=== PATIENT | female | born 1965 | race African-American/Black ===

== ENCOUNTER 2018-07-25 14:45 | Inpatient (IN) | payer OTHER ==
[2018-07-25 17:24] VITALS: BMI 19.7
--- NOTE | 2018-07-25 17:58 | HP ---
CIWA Score Nausea/Vomitin-Mild Nausea/No Vomiting Muscle Tremors: 3 Anxiety: 2 Agitation: 3 Paroxysmal Sweats: 1-Minimal Palms Moist Orientation: 0-Oriented Tacttile Disturbances: 0-None Auditory Disturbances: 0-None Visual Disturbances: 0-None Headache: 2-Mild CIWA-Ar Total Score: 12 - Admission Criteria OASAS Guidelines: Admission for Medically Managed Detox: Requires at least one of the followin. CIWA greater than 12 2. Seizures within the past 24 hours 3. Delirium tremens within the past 24 hours 4. Hallucinations within the past 24 hours 5. Acute intervention needed for co occurring medical disorder 6. Acute intervention needed for co occurring psychiatric disorder 7. Severe withdrawal that cannot be handled at a lower level of care (continued vomiting, continued diarrhea, abnormal vital signs) requiring intravenous medication and/or fluids 8. Patient presents the following: CIWA greater than 12 Admission Criteria Met: Admission criteria met Admission ROS S - [facility] Chief Complaint: here for alcohol and cocaine detox. On methadone 75mg qd - [facility] alcohol 15 24 oz of alcohol 4 loco alcohol, last drink this am, started at age, no h/o seizures, DT's cocaine: carck $50, last use last night Last detox treatment in [place] about 6 years ago. MH: schizophrenia, bipolar, depression depakote 500mg BID- last taken 1 week zyprexa- 25 mg trazodone for sleep 100mg Medical-PCP- [facility] asthma- albuterol, steroid po last week arrthymia- due to cocaine, on no meds pos PPD- s/p INH DUR- no controlled substances, methadone 75mg MAT at [facility] Utox- cocaine VERONICA- 0. Allergies/Adverse Reactions: Allergies Allergy/AdvReac Type Severity Reaction Status Date / Time Penicillins Allergy Severe Hives Verified 07/25/18 17:54 - Ebola screening Have you traveled outside of the country in the last 21 days: No Have you traveled to any of the following countries: [place] Have you had contact with anyone from an Ebola affected area: No Have you been sick,other than usual withdrawal symptoms: No - Review of Systems EENT: reports: Other (right side clogged ear- decreased hearing) Patient History - Patient Medical History Hx Asthma: Yes (asthma) Hx Cardiac Disorders: Yes (h/o arrhythmia due to cocaine use ) Hx Depression: Yes Hx Bipolar Disorder: Yes Hx Schizophrenia: Yes - Patient Surgical History Hx Appendectomy: Yes Other Surgical History: tonsillectomy - PPD History Documented Results: Positive w/o proof PPD to be Administered?: No - Smoking Cessation Smoking history: Current every day smoker Have you smoked in the past 12 months: Yes Aproximately how many cigarettes per day: 10 Hx Chewing Tobacco Use: No Initiated information on smoking cessation: Yes 'Breaking Loose' booklet given: 07/25/18 - Substance & Tx. History Hx Alcohol Use: Yes Hx Substance Use: Yes Substance Use Type: Alcohol, Cocaine Hx Substance Use Treatment: Yes - Substances Abused Alcohol Route: Oral Frequency: Daily Amount used: 12 24 OZ BEERS Age of first use: 17 Date of Last Use: 07/25/18 Crack Route: Smoking Frequency: Daily Amount used: $50 AND UP Age of first use: 17 Date of Last Use: 07/24/18 Family Disease History - Family Disease History Family History: Denies (denies med problems) Admission Physical Exam S - Vital Signs Vital Signs: Vital Signs - 24 hr 07/25/18 17:22 Temperature 97.3 F L Pulse Rate 55 L Respiratory 18 Rate Blood Pressure 138/78 - Physical General Appearance: Yes: Within Normal Limits HEENTM: Yes: Within Normal Limits Respiratory: Yes: Within Normal Limits Neck: Yes: Within Normal Limits Breast: Yes: Within Normal Limits Cardiology: Yes: Within Normal Limits Abdominal: Yes: Within Normal Limits Genitourinary: Yes: Within Normal Limits Back: Yes: Within Normal Limits Musculoskeletal: Yes: Within Normal Limits Extremities: Yes: Within Normal Limits, Normal Capillary Refill, Normal Inspection, Other (superficial skin wound of L mid leg about 3 inches above ankle) Neurological: Yes: Within Normal Limits, 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
[2018-07-25] MEDS ORDERED: ACETAMINOPHEN 325 MG TABLET (FP) PO PRN (18:06)
[2018-07-25] MEDS ORDERED: guaiFENesin/D-METHORPHAN HB 10 ML UNIT-DOSE CUPS PO PRN (18:06)
[2018-07-25] MEDS ORDERED: LOPERAMIDE HCL 2 MG CAPSULE PO PRN (18:06)
[2018-07-25] MEDS ORDERED: MAGNESIUM HYDROX 2400MG/30ML ORAL SUSPENSION 30 ML CUP PO PRN (18:06)
[2018-07-25] MEDS ORDERED: MAGNESIUM CITRATE 300 ML BOTTLE PO PRN (18:06)
[2018-07-25] MEDS ORDERED: hydrOXYzine PAMOATE 50 MG CAPSULE (FP) PO PRN (18:06)
[2018-07-25] MEDS ORDERED: IBUPROFEN 400 MG TABLET (FP) PO PRN (18:06)
[2018-07-25] MEDS ORDERED: MAG HYDROX/AL HYDROX/SIMETH 30 ML UNIT-DOSE CUP PO PRN (18:06)
[2018-07-25] MEDS ORDERED: MENTHOL/PHENOL 1 EACH UD MM PRN (18:06)
[2018-07-25] MEDS ORDERED: P-EPHED 60MG/TRIPROLIDI 2.5MG TABLET PO PRN (18:06)
[2018-07-25] MEDS ORDERED: chlordiazePOXIDE HCL 25 MG CAPSULE PO PRN (18:08)
[2018-07-25] MEDS ORDERED: ALBUTEROL SO4 8 GM HFA INHALER IH PRN (18:20)
[2018-07-25] MEDS ORDERED: chlordiazePOXIDE HCL 25 MG CAPSULE PO ONE (19:00)
[2018-07-25] MEDS ORDERED: MELATONIN 5 MG TABLETS PO PRN (22:00)
[2018-07-25] MEDS: BACITRACIN 0.9 GM PACKET TP SCH (22:30)
[2018-07-25] MEDS: DIVALPROEX NA *ER* EXTEND REL 500 MG TABLET.SA (FP) PO SCH (22:31)
[2018-07-25] MEDS: chlordiazePOXIDE HCL 25 MG CAPSULE PO SCH (22:31)
[2018-07-25] MEDS: traZODone HCL 100 MG TABLET (FP) PO SCH (22:31)
[2018-07-25] MEDS: THIAMINE HCL 100 MG TABLET (FP) PO SCH (22:31)
[2018-07-26] MEDS: chlordiazePOXIDE HCL 25 MG CAPSULE PO SCH ×3 (06:09→17:22)
[2018-07-26] MEDS ORDERED: METHADONE HCL 10 MG TABLET PO ONE (09:18)
[2018-07-26] MEDS ORDERED: METHADONE HCL 10 MG TABLET PO SCH (09:30)
[2018-07-26] MEDS ORDERED: METHADONE 40 MG, METHADONE 30 MG, METHADONE 5 MG PO ONE (09:30)
[2018-07-26] MEDS ORDERED: METHADONE HCL 40 MG DISPERSABLE TABLET ONE (09:57)
[2018-07-26] MEDS ORDERED: METHADONE HCL 5 MG TABLET ONE (09:57)
[2018-07-26] MEDS ORDERED: METHADONE HCL 10 MG TABLET ONE (09:58)
[2018-07-26] MEDS ORDERED: METHADONE HCL 5 MG TABLET (FOR DETOX USE ONLY) PO SCH (10:00)
[2018-07-26 10:23] LABS: HEMATOCRIT 39.6 % (32.4-45.2); HEMOGLOBIN 12.3 GM/dL (10.7-15.3); MCH 28.3 pg (25.7-33.7); MCHC 31.2 g/dl (32.0-36.0); MEAN CELL VOLUME 90.8 fl (80-96); MEAN PLT VOLUME 11.9 fl (7.5-11.1); PLATELET COUNT 161 K/MM3 (134-434); RBC 4.36 M/mm3 (3.60-5.2); RDW 14.4 % (11.6-15.6); WHITE BLOOD COUNT 3.9 K/mm3 (4.0-10.0)
[2018-07-26 10:33] LABS: ALBUMIN 2.8 g/dl (3.4-5.0); ALK PHOS 92 U/L (45-117); ANION GAP 10 MMOL/L (8-16); BILIRUBIN,TOTAL 0.1 mg/dL (0.2-1); BLOOD UREA NITROGEN 16 mg/dL (7-18); CALCIUM 8.6 mg/dL (8.5-10.1); CHLORIDE 107 mmol/L (98-107); CO2 23 mmol/L (21-32); CREATININE 0.9 mg/dL (0.55-1.3); GLUCOSE,RANDOM 131 mg/dL (74-106); POTASSIUM 3.3 mmol/L (3.5-5.1); SGOT/AST 17 U/L (15-37); SGPT/ALT 16 U/L (13-61); SODIUM 140 mmol/L (136-145); TOT PROT 6.2 g/dl (6.4-8.2)
[2018-07-26] MEDS: OLANZapine 10 MG TABLET PO SCH (10:47)
[2018-07-26] MEDS: PRENATAL VITAMINS W/ FOLIC ACID TABLET (FP) PO SCH (10:48)
[2018-07-26] MEDS: BACITRACIN 0.9 GM PACKET TP SCH ×2 (10:48→22:20)
[2018-07-26] MEDS: NICOTINE 14 MG/24 HOURS TOPICAL PATCH TD SCH (10:48)
[2018-07-26] MEDS: DIVALPROEX NA *ER* EXTEND REL 500 MG TABLET.SA (FP) PO SCH ×2 (10:49→22:20)
--- NOTE | 2018-07-26 16:20 | PN ---
S CIWA - CIWA Score Nausea/Vomitin-No Nausea/No Vomiting Muscle Tremors: 2 Anxiety: 3 Agitation: 2 Paroxysmal Sweats: 1-Minimal Palms Moist Orientation: 0-Oriented Tacttile Disturbances: 0-None Auditory Disturbances: 0-None Visual Disturbances: 0-None Headache: 2-Mild CIWA-Ar Total Score: 10 BHS Progress Note (SOAP) Subjective: Laboratory Tests 07/26/18 07/26/18 07/26/18 07:00 07:00 07:00 WBC 3.9 L RBC 4.36 Hgb 12.3 Hct 39.6 MCV 90.8 MCH 28.3 MCHC 31.2 L RDW 14.4 Plt Count 161 MPV 11.9 H Sodium 140 Potassium 3.3 L Chloride 107 Carbon Dioxide 23 Anion Gap 10 BUN 16 Creatinine 0.9 Creat Clearance w eGFR > 60 Random Glucose 131 H Calcium 8.6 Total Bilirubin 0.1 L AST 17 ALT 16 Alkaline Phosphatase 92 Total Protein 6.2 L Albumin 2.8 L RPR Titer Nonreactive Vital Signs Temperature 98.2 F 07/26/18 14:32 Pulse Rate 64 07/26/18 14:32 Respiratory Rate 16 07/26/18 14:32 Blood Pressure 98/56 L 07/26/18 14:32 O2 Sat by Pulse Oximetry (%) LABS NOTED Objective: 07/26/18 16:19 PE: ALERT AND ORIENTED X 3 SKIN WARM, MILD MOISTURE TO PALMS CAR S1S2 RESP CTA BL EXT +MILD TREMORS +ANXIETY, RESTLESSNESS BODY BUILD THIN Assessment: 07/26/18 16:19 HYPOKALEMIA WITHDRAWAL SX Plan: CONTINUE DETOX ADD ENSURE TO DIET KDUR 20MEQ BID X 2 DOSES REPEAT LEVEL IN AM CONTINUE TO MONITOR
[2018-07-26] MEDS: POTASSIUM CHLORIDE TABS 20 MEQ TABLET.ER (FP) PO SCH (17:56)
[2018-07-26] MEDS: THIAMINE HCL 100 MG TABLET (FP) PO SCH (22:19)
[2018-07-26] MEDS: chlordiazePOXIDE 5 MG CAPSULE PO SCH (22:20)
[2018-07-26] MEDS: traZODone HCL 100 MG TABLET (FP) PO SCH (22:21)
[2018-07-27] MEDS ORDERED: METHADONE HCL 5 MG TABLET ONE (05:03)
[2018-07-27] MEDS ORDERED: METHADONE HCL 10 MG TABLET ONE (05:03)
[2018-07-27] MEDS ORDERED: METHADONE HCL 40 MG DISPERSABLE TABLET ONE (05:03)
[2018-07-27] MEDS: METHADONE 40 MG, METHADONE 30 MG, METHADONE 5 MG PO SCH (05:44)
[2018-07-27] MEDS ORDERED: METHADONE HCL 40 MG DISPERSABLE TABLET PO SCH (06:00)
[2018-07-27] MEDS: chlordiazePOXIDE 5 MG CAPSULE PO SCH ×3 (07:27→17:25)
[2018-07-27] MEDS: OLANZapine 10 MG TABLET PO SCH (10:20)
[2018-07-27] MEDS: POTASSIUM CHLORIDE TABS 20 MEQ TABLET.ER (FP) PO SCH (10:21)
[2018-07-27] MEDS: DIVALPROEX NA *ER* EXTEND REL 500 MG TABLET.SA (FP) PO SCH ×2 (10:21→22:20)
[2018-07-27] MEDS: BACITRACIN 0.9 GM PACKET TP SCH ×2 (10:21→22:20)
[2018-07-27] MEDS: PRENATAL VITAMINS W/ FOLIC ACID TABLET (FP) PO SCH (10:21)
[2018-07-27] MEDS: NICOTINE 14 MG/24 HOURS TOPICAL PATCH TD SCH (10:22)
--- NOTE | 2018-07-27 11:55 | PN ---
[facility] CIWA - CIWA Score Nausea/Vomitin-No Nausea/No Vomiting Muscle Tremors: 3 Anxiety: 2 Agitation: 3 Paroxysmal Sweats: 3 Orientation: 0-Oriented Tacttile Disturbances: 0-None Auditory Disturbances: 0-None Visual Disturbances: 0-None Headache: 0-None Present CIWA-Ar Total Score: 11 BHS Progress Note (SOAP) Subjective: groggy sweats tired interrupted sleep Objective: 07/27/18 11:53 Vital Signs Temperature 98.2 F 07/27/18 09:48 Pulse Rate 60 07/27/18 09:48 Respiratory Rate 16 07/27/18 09:48 Blood Pressure 112/54 L 07/27/18 09:48 O2 Sat by Pulse Oximetry (%) Laboratory Tests 07/26/18 07/26/18 07/26/18 07:00 07:00 07:00 WBC 3.9 L RBC 4.36 Hgb 12.3 Hct 39.6 MCV 90.8 MCH 28.3 MCHC 31.2 L RDW 14.4 Plt Count 161 MPV 11.9 H Sodium 140 Potassium 3.3 L Chloride 107 Carbon Dioxide 23 Anion Gap 10 BUN 16 Creatinine 0.9 Creat Clearance w eGFR > 60 Random Glucose 131 H Calcium 8.6 Total Bilirubin 0.1 L AST 17 ALT 16 Alkaline Phosphatase 92 Total Protein 6.2 L Albumin 2.8 L RPR Titer Nonreactive 07/27/18 07:00 WBC RBC Hgb Hct MCV MCH MCHC RDW Plt Count MPV Sodium Potassium 4.3 Chloride Carbon Dioxide Anion Gap BUN Creatinine Creat Clearance w eGFR Random Glucose Calcium Total Bilirubin AST ALT Alkaline Phosphatase Total Protein Albumin RPR Titer aaox3 ambulating no acute distress Assessment: 07/27/18 11:54 withdrawal sx Plan: continue detox when pt is less groggy, hold 10am librium increase fluids
[2018-07-27] MEDS: chlordiazePOXIDE HCL 10 MG CAPSULE PO SCH (22:20)
[2018-07-27] MEDS: THIAMINE HCL 100 MG TABLET (FP) PO SCH (22:20)
[2018-07-27] MEDS: traZODone HCL 100 MG TABLET (FP) PO SCH (22:20)
[2018-07-28] MEDS: chlordiazePOXIDE HCL 10 MG CAPSULE PO SCH ×2 (05:31→11:00)
[2018-07-28] MEDS ORDERED: METHADONE HCL 5 MG TABLET ONE (06:45)
[2018-07-28] MEDS: METHADONE 40 MG, METHADONE 30 MG, METHADONE 5 MG PO SCH (06:45)
[2018-07-28] MEDS ORDERED: METHADONE HCL 10 MG TABLET ONE (06:45)
[2018-07-28] MEDS ORDERED: METHADONE HCL 40 MG DISPERSABLE TABLET ONE (06:45)
[2018-07-28] MEDS: PRENATAL VITAMINS W/ FOLIC ACID TABLET (FP) PO SCH (11:00)
[2018-07-28] MEDS: NICOTINE 14 MG/24 HOURS TOPICAL PATCH TD SCH (11:00)
[2018-07-28] MEDS: BACITRACIN 0.9 GM PACKET TP SCH ×2 (11:00→22:14)
[2018-07-28] MEDS: OLANZapine 10 MG TABLET PO SCH (11:00)
--- NOTE | 2018-07-28 12:46 | PN ---
BHS Progress Note (SOAP) Subjective: sleepy tired Objective: 07/28/18 12:45 Vital Signs Temperature 98.2 F 07/28/18 09:36 Pulse Rate 75 07/28/18 09:36 Respiratory Rate 16 07/28/18 09:36 Blood Pressure 123/74 07/28/18 09:36 O2 Sat by Pulse Oximetry (%) aaox3 groggy Assessment: 07/28/18 12:45 mild withdrawal sx Plan: all librium and depakote d/c increase fluids d/c in am
[2018-07-28] MEDS: THIAMINE HCL 100 MG TABLET (FP) PO SCH (22:14)
[2018-07-28] MEDS ORDERED: chlordiazePOXIDE HCL 10 MG CAPSULE PO SCH (23:00)
[2018-07-29] MEDS ORDERED: METHADONE HCL 5 MG TABLET ONE (04:39)
[2018-07-29] MEDS ORDERED: METHADONE HCL 40 MG DISPERSABLE TABLET ONE (04:39)
[2018-07-29] MEDS ORDERED: METHADONE HCL 10 MG TABLET ONE (04:39)
[2018-07-29] MEDS: METHADONE 40 MG, METHADONE 30 MG, METHADONE 5 MG PO SCH (05:22)
[2018-07-29] MEDS: BACITRACIN 0.9 GM PACKET TP SCH (10:05)
[2018-07-29] MEDS: PRENATAL VITAMINS W/ FOLIC ACID TABLET (FP) PO SCH (10:05)
[2018-07-29] MEDS: OLANZapine 10 MG TABLET PO SCH (10:06)
[2018-07-29] MEDS: NICOTINE 14 MG/24 HOURS TOPICAL PATCH TD SCH (10:06)
[2018-07-29 10:16] VITALS: BP 120/78; PULSE 79; TEMP 98.1
--- NOTE | 2018-07-29 12:54 | PN ---
BHS Progress Note Note: pt for d/c Will continue aftercare Rehab at [facility] in no distress Vital Signs Temperature 98.1 F 07/29/18 10:13 Pulse Rate 79 07/29/18 10:13 Respiratory Rate 18 07/29/18 10:13 Blood Pressure 120/78 07/29/18 10:13 O2 Sat by Pulse Oximetry (%)
--- NOTE | 2018-07-29 12:56 | DS ---
[facility] Detox Discharge Summary Admission Date: 07/25/18 Discharge Date: 07/29/18 - History Additional Comments: Pt for d/c Aftercare at [facility] - Physical Exam Results Vital Signs: Vital Signs Temperature 98.1 F 07/29/18 10:13 Pulse Rate 79 07/29/18 10:13 Respiratory Rate 18 07/29/18 10:13 Blood Pressure 120/78 07/29/18 10:13 O2 Sat by Pulse Oximetry (%) Pertinent Admission Physical Exam Findings: withdrawal sx - Treatment Hospital Course: Detox Protocol Followed, Detoxed Safely, Responded well, Discharged Condition Good, Rehab Referral Accepted Patient has Accepted a Rehab Referral to: [facility] - Medication Discharge Medications: Ambulatory Orders Albuterol Sulfate Inhaler - [Ventolin Hfa Inhaler -] 2 inh PO Q4H PRN 07/25/18 Divalproex Sodium [Depakote ER] 500 mg PO BID 07/25/18 Olanzapine [Zyprexa] 20 mg PO DAILY 07/25/18 traZODone HCL [Trazodone HCl] 100 mg PO HS 07/25/18 Methadone [Dolophine -] 75 mg PO DAILY 07/29/18 - Diagnosis (1) Alcohol dependence with uncomplicated withdrawal Status: Acute (2) Asthma Status: Acute (3) Bipolar affective Status: Acute (4) Cocaine use disorder Status: Acute (5) Hypokalemia Status: Acute (6) Insomnia Status: Acute (7) Weight loss Status: Acute (8) Methadone maintenance therapy patient Status: Chronic - AMA Did Patient Leave Against Medical Advice: No
== END 2018-07-29 10:30 | disposition other institution (70) | DRG 773 ==
LOC: YASAS 14:45 → Y6N 18:28
PROC: HZ2ZZZZ Detoxification Services for Substance Abuse Treatment (ICD-10-PCS; principal; 2018-07-25)
DX: F10.230 Alcohol dependence with withdrawal, uncomplicated (principal); F14.20 Cocaine dependence, uncomplicated; F11.20 Opioid dependence, uncomplicated; F31.9 Bipolar disorder, unspecified; F20.9 Schizophrenia, unspecified; E87.6 Hypokalemia; J45.909 Unspecified asthma, uncomplicated; G47.00 Insomnia, unspecified; R76.11 Nonspecific reaction to tuberculin skin test without active tuberculosis; R63.4 Abnormal weight loss; Z68.1 Body mass index [BMI] 19.9 or less, adult; Z88.0 Allergy status to penicillin
CPT/HCPCS: 36415; 71046-TC-FY; 80053; 84132; 85027; 86593

== ENCOUNTER 2018-07-29 10:47 | Inpatient (IN) | payer OTHER ==
[2018-07-29] MEDS: DIVALPROEX SODIUM 500 MG TABLET E.C. PO SCH ×2 (12:54→21:28)
--- NOTE | 2018-07-29 12:58 | HP ---
[facility] Rehab Assess/Revision - Admission History Admitted to Rehab from: [facility] Date of Admission to Rehab: 07/29/2018 - Vital signs Vital Signs: Vital Signs Period Temp Pulse Resp BP Sys/Berry Pulse Ox Last 24 Hr 98.0 F 76 17 112/70 - Findings Detox History & Physical reviewed: Yes Concur with findings: Yes Inpatient Rehab Admission - Initial Determination Are CD services needed?: Yes Free of communicable disease: Yes Not in need of hospitalization: Yes - Rehab Admission Criteria Previous failed treatment: Yes Poor recovery environment: Yes Comorbidities: Yes Lacks judgement: Yes Patient is meeting Inpatient Rehab admission criteria:: Yes (Admitted to 3E)
[2018-07-29] MEDS ORDERED: guaiFENesin/D-METHORPHAN HB 10 ML UNIT-DOSE CUPS PO PRN (13:01)
[2018-07-29] MEDS ORDERED: ACETAMINOPHEN 325 MG TABLET (FP) PO PRN (13:01)
[2018-07-29] MEDS ORDERED: P-EPHED 60MG/TRIPROLIDI 2.5MG TABLET PO PRN (13:01)
[2018-07-29] MEDS ORDERED: MAGNESIUM HYDROX 2400MG/30ML ORAL SUSPENSION 30 ML CUP PO PRN (13:01)
[2018-07-29] MEDS ORDERED: MENTHOL/PHENOL 1 EACH UD MM PRN (13:01)
[2018-07-29] MEDS ORDERED: LOPERAMIDE HCL 2 MG CAPSULE PO PRN (13:01)
[2018-07-29] MEDS ORDERED: MAGNESIUM CITRATE 300 ML BOTTLE PO PRN (13:01)
[2018-07-29] MEDS ORDERED: ALBUTEROL SO4 8 GM HFA INHALER IH PRN (13:08)
[2018-07-29] MEDS: IBUPROFEN 400 MG TABLET (FP) PO PRN (14:53)
[2018-07-29] MEDS: THIAMINE HCL 100 MG TABLET (FP) PO SCH (21:28)
[2018-07-29] MEDS: traZODone HCL 100 MG TABLET (FP) PO SCH (21:29)
[2018-07-29] MEDS: BACITRACIN 0.9 GM PACKET TP SCH (21:29)
[2018-07-29] MEDS ORDERED: MELATONIN 5 MG TABLETS PO PRN (22:00)
[2018-07-30] MEDS ORDERED: METHADONE HCL 10 MG TABLET PO SCH (06:00)
[2018-07-30] MEDS ORDERED: METHADONE HCL 10 MG TABLET ONE (06:15)
[2018-07-30] MEDS ORDERED: METHADONE HCL 5 MG TABLET ONE (06:15)
[2018-07-30] MEDS ORDERED: METHADONE HCL 40 MG DISPERSABLE TABLET ONE (06:15)
[2018-07-30] MEDS: METHADONE 40 MG, METHADONE 30 MG, METHADONE 5 MG PO SCH (06:38)
[2018-07-30] MEDS: BACITRACIN 0.9 GM PACKET TP SCH ×2 (09:44→21:14)
[2018-07-30] MEDS: NICOTINE 14 MG/24 HOURS TOPICAL PATCH TD SCH (09:44)
[2018-07-30] MEDS: DIVALPROEX SODIUM 500 MG TABLET E.C. PO SCH ×2 (09:44→21:14)
[2018-07-30] MEDS: OLANZapine 10 MG TABLET PO SCH (09:44)
[2018-07-30] MEDS: PRENATAL VITAMINS W/ FOLIC ACID TABLET (FP) PO SCH (09:44)
--- NOTE | 2018-07-30 15:38 | HP ---
Psychiatrist Admission - Data Date of interview: 07/30/18 Admission source: 6N Identifying data: This is the first [facility] admission for this 53 years old single Black female, mother of 3 children, unemployed with no source of income, domiciled living a friend Medical History: Significant for bronchial asthma, arrythmia, arthritis, back pain, history of treatment for PPD+ and surgeries(appendectomy, tonsillectomy). Patient is on methadone 75 mg/day. Smokes 10 cigarettes daily Psychiatric History: Reports being diagnosed with Bipolar /Schizophrenia 4-5 years ago. Reports 3 previous psychiatric hospitalizations. She is known to [facility]. Reports no current OPD care but gets of medication refills via ED. Reports being on Depakote 500 mg po BID, Zyprexa 20 mg po HS and Trazadone 100 mg po HS. Denies previous suicidal attempt. At present, denies experiencing psychotic, manic or depressive symptoms, S/H ideations Physical/Sexual Abuse/Trauma History: Denies history of emotional, physical or sexual abuse as well as DV relationship. Additional Comment: Reports history of multiple previous misdemeanor arrest. Vital Signs: Vital Signs - 24 hr 07/30/18 07/30/18 07/30/18 00:30 03:30 06:59 Temperature 97.0 F L Pulse Rate 79 Respiratory 18 18 16 Rate Blood Pressure 114/71 Allergies/Adverse Reactions: Allergies Allergy/AdvReac Type Severity Reaction Status Date / Time Penicillins Allergy Severe Hives Verified 07/25/18 17:54 Date of last physical exam: 07/25/18 Concur with the findings of this exam: Yes - Substance Abuse/Tx History Hx Alcohol Use: Yes Hx Substance Use: Yes Substance Use Type: Alcohol (Started drinking alcohol at age 17, conn), Cocaine (Started smoking crack cocaine at age 17, consumes $50 and up daily. Last smoked on 07/24/18) Hx Substance Use Treatment: Yes (Currently attends [facility]) Mental Status Exam - Mental Status Exam Alert and Oriented to: Time (April ), Place, Person Cognitive Function: Fair Patient Appearance: Well Groomed Mood: Hopeful, Euthymic Affect: Appropriate Patient Behavior: Sedated (very sleepy, can haedly keep her eyes open during the interview) Speech Pattern: Clear Voice Loudness: Normal Thought Process: Intact Thought Disorder: Not Present Hallucinations: Denies Suicidal Ideation: Denies Homicidal Ideation: Denies Insight/Judgement: Fair Sleep: Well Appetite: Good Muscle strength/Tone: Normal Gait/Station: Normal Psychiatric Findings - Problem List (Reading 1, 2,3) (1) Alcohol dependence Current Visit: Yes Status: Acute (2) Cocaine dependence Current Visit: Yes Status: Acute (3) Opioid dependence on agonist therapy Current Visit: Yes Status: Chronic (4) Nicotine dependence Current Visit: Yes Status: Chronic (5) Bipolar II disorder Current Visit: Yes Status: Chronic (6) Schizoaffective disorder Current Visit: Yes Status: Ruled-out (7) Asthma Current Visit: No Status: Chronic (8) PPD positive, treated Current Visit: Yes Status: Resolved - Initial Treatment Plan Initial Treatment Plan: 1) Continue Depakote 500 mg po BID and Zyprexa 20 mg po daily ordered by Dr Rivero. 2) Discontinue Trazadone(Patient is too sedated at this time). 3) Monitor progress
[2018-07-30] MEDS: traZODone HCL 100 MG TABLET (FP) PO SCH (21:14)
[2018-07-30] MEDS: THIAMINE HCL 100 MG TABLET (FP) PO SCH (21:14)
[2018-07-31] MEDS: IBUPROFEN 400 MG TABLET (FP) PO PRN (00:54)
[2018-07-31] MEDS ORDERED: METHADONE HCL 10 MG TABLET ONE (03:04)
[2018-07-31] MEDS ORDERED: METHADONE HCL 5 MG TABLET ONE (03:04)
[2018-07-31] MEDS ORDERED: METHADONE HCL 40 MG DISPERSABLE TABLET ONE (03:05)
[2018-07-31] MEDS: METHADONE 40 MG, METHADONE 30 MG, METHADONE 5 MG PO SCH (06:37)
[2018-07-31] MEDS: PRENATAL VITAMINS W/ FOLIC ACID TABLET (FP) PO SCH (10:01)
[2018-07-31] MEDS: BACITRACIN 0.9 GM PACKET TP SCH ×2 (10:01→21:48)
[2018-07-31] MEDS: OLANZapine 10 MG TABLET PO SCH (10:01)
[2018-07-31] MEDS: NICOTINE 14 MG/24 HOURS TOPICAL PATCH TD SCH (10:01)
[2018-07-31] MEDS: DIVALPROEX SODIUM 500 MG TABLET E.C. PO SCH ×2 (10:02→21:49)
[2018-07-31] MEDS: THIAMINE HCL 100 MG TABLET (FP) PO SCH (21:48)
[2018-07-31] MEDS: traZODone HCL 100 MG TABLET (FP) PO SCH (21:49)
[2018-08-01] MEDS: IBUPROFEN 400 MG TABLET (FP) PO PRN (04:36)
[2018-08-01] MEDS ORDERED: METHADONE HCL 5 MG TABLET ONE (05:59)
[2018-08-01] MEDS ORDERED: METHADONE HCL 40 MG DISPERSABLE TABLET ONE (06:00)
[2018-08-01] MEDS ORDERED: METHADONE HCL 10 MG TABLET ONE (06:00)
[2018-08-01] MEDS: METHADONE 40 MG, METHADONE 30 MG, METHADONE 5 MG PO SCH (06:11)
[2018-08-01] MEDS: BACITRACIN 0.9 GM PACKET TP SCH ×2 (09:50→21:39)
[2018-08-01] MEDS: NICOTINE 14 MG/24 HOURS TOPICAL PATCH TD SCH (09:51)
[2018-08-01] MEDS: OLANZapine 10 MG TABLET PO SCH (09:51)
[2018-08-01] MEDS: DIVALPROEX SODIUM 500 MG TABLET E.C. PO SCH ×2 (09:51→21:40)
[2018-08-01] MEDS: PRENATAL VITAMINS W/ FOLIC ACID TABLET (FP) PO SCH (09:52)
--- NOTE | 2018-08-01 11:37 | PN ---
[facility] Progress Note Note: PATIENT SEEN FOR EVALUATION OF LEFT LOWER LEG SMALL LACERATION. PATIENT DENIES PAIN TO LEFT LEG. HAS FULL ROM OF BOTH EXTREMITIES AND AMB AD PITO. SKIN WARM AND DRY. SMALL HEALING LACERATION OF LEFT LOWER LEG INTACT. NO SURROUNDING REDNESS OR DISCHARGE NOTED. +PEDAL EDEMA OF LEFT FOOT +1. WILL CONTINUE BACITRACIN TREATMENT AND CONTINUE TO MONITOR CLINICALLY. Vital Signs Temperature 99.5 F 08/01/18 07:14 Pulse Rate 79 08/01/18 07:14 Respiratory Rate 18 08/01/18 07:14 Blood Pressure 104/74 08/01/18 07:14 O2 Sat by Pulse Oximetry (%)
[2018-08-01] MEDS: THIAMINE HCL 100 MG TABLET (FP) PO SCH (21:40)
[2018-08-01] MEDS: traZODone HCL 100 MG TABLET (FP) PO SCH (21:40)
[2018-08-02] MEDS ORDERED: METHADONE HCL 5 MG TABLET ONE (03:12)
[2018-08-02] MEDS ORDERED: METHADONE HCL 10 MG TABLET ONE (03:12)
[2018-08-02] MEDS ORDERED: METHADONE HCL 40 MG DISPERSABLE TABLET ONE (03:13)
[2018-08-02] MEDS: METHADONE 40 MG, METHADONE 30 MG, METHADONE 5 MG PO SCH (06:25)
[2018-08-02] MEDS: OLANZapine 10 MG TABLET PO SCH (09:45)
[2018-08-02] MEDS: PRENATAL VITAMINS W/ FOLIC ACID TABLET (FP) PO SCH (09:45)
[2018-08-02] MEDS: DIVALPROEX SODIUM 500 MG TABLET E.C. PO SCH ×2 (09:45→21:11)
[2018-08-02] MEDS: NICOTINE 14 MG/24 HOURS TOPICAL PATCH TD SCH (09:45)
[2018-08-02] MEDS: BACITRACIN 0.9 GM PACKET TP SCH ×2 (09:45→21:11)
--- NOTE | 2018-08-02 11:25 | PN ---
BHS Progress Note Note: PT C/O MUSCLE SPASM AND DECREASED APPETITE WITH FATIGUE. REQUESTING INCREASED ENSURE FOR ENERGY. Vital Signs - 24 hr 08/02/18 08/02/18 03:30 07:04 Temperature 97.7 F Pulse Rate 61 Respiratory 16 18 Rate Blood Pressure 132/86 NAD PLAN:INCREASE ENSURE 120 ML PO TID INCREASE PO FLUIDS
[2018-08-02] MEDS: CYCLOBENZAPRINE HCL 10 MG TABLET (FP) PO PRN (12:33)
[2018-08-02] MEDS: MAG HYDROX/AL HYDROX/SIMETH 30 ML UNIT-DOSE CUP PO PRN (16:41)
[2018-08-02] MEDS: traZODone HCL 100 MG TABLET (FP) PO SCH (21:11)
[2018-08-02] MEDS: THIAMINE HCL 100 MG TABLET (FP) PO SCH (21:11)
[2018-08-03] MEDS ORDERED: METHADONE HCL 10 MG TABLET ONE (03:15)
[2018-08-03] MEDS ORDERED: METHADONE HCL 5 MG TABLET ONE (03:15)
[2018-08-03] MEDS ORDERED: METHADONE HCL 40 MG DISPERSABLE TABLET ONE (03:16)
[2018-08-03] MEDS: METHADONE 40 MG, METHADONE 30 MG, METHADONE 5 MG PO SCH (06:16)
[2018-08-03] MEDS: OLANZapine 10 MG TABLET PO SCH (09:34)
[2018-08-03] MEDS: NICOTINE 14 MG/24 HOURS TOPICAL PATCH TD SCH (09:34)
[2018-08-03] MEDS: BACITRACIN 0.9 GM PACKET TP SCH ×2 (09:35→21:36)
[2018-08-03] MEDS: PRENATAL VITAMINS W/ FOLIC ACID TABLET (FP) PO SCH (09:35)
[2018-08-03] MEDS: DIVALPROEX SODIUM 500 MG TABLET E.C. PO SCH ×2 (09:35→21:36)
[2018-08-03] MEDS: MAG HYDROX/AL HYDROX/SIMETH 30 ML UNIT-DOSE CUP PO PRN (12:53)
[2018-08-03] MEDS: CYCLOBENZAPRINE HCL 10 MG TABLET (FP) PO PRN (17:06)
[2018-08-03] MEDS: traZODone HCL 100 MG TABLET (FP) PO SCH (21:36)
[2018-08-03] MEDS: THIAMINE HCL 100 MG TABLET (FP) PO SCH (21:37)
[2018-08-04] MEDS: CYCLOBENZAPRINE HCL 10 MG TABLET (FP) PO PRN ×2 (05:26→21:22)
[2018-08-04] MEDS ORDERED: METHADONE HCL 5 MG TABLET ONE (05:48)
[2018-08-04] MEDS ORDERED: METHADONE HCL 10 MG TABLET ONE (05:48)
[2018-08-04] MEDS ORDERED: METHADONE HCL 40 MG DISPERSABLE TABLET ONE (05:49)
[2018-08-04] MEDS: METHADONE 40 MG, METHADONE 30 MG, METHADONE 5 MG PO SCH (06:13)
[2018-08-04] MEDS: BACITRACIN 0.9 GM PACKET TP SCH ×2 (10:04→21:22)
[2018-08-04] MEDS: NICOTINE 14 MG/24 HOURS TOPICAL PATCH TD SCH (10:04)
[2018-08-04] MEDS: PRENATAL VITAMINS W/ FOLIC ACID TABLET (FP) PO SCH (10:05)
[2018-08-04] MEDS: DIVALPROEX SODIUM 500 MG TABLET E.C. PO SCH ×2 (10:05→21:22)
[2018-08-04] MEDS: OLANZapine 10 MG TABLET PO SCH (10:05)
[2018-08-04] MEDS: THIAMINE HCL 100 MG TABLET (FP) PO SCH (21:22)
[2018-08-04] MEDS: traZODone HCL 100 MG TABLET (FP) PO SCH (21:23)
[2018-08-05] MEDS: CYCLOBENZAPRINE HCL 10 MG TABLET (FP) PO PRN (04:35)
[2018-08-05] MEDS ORDERED: METHADONE HCL 10 MG TABLET ONE (05:47)
[2018-08-05] MEDS ORDERED: METHADONE HCL 5 MG TABLET ONE (05:47)
[2018-08-05] MEDS ORDERED: METHADONE HCL 40 MG DISPERSABLE TABLET ONE (05:48)
[2018-08-05] MEDS: METHADONE 40 MG, METHADONE 30 MG, METHADONE 5 MG PO SCH (06:45)
[2018-08-05] MEDS: NICOTINE 14 MG/24 HOURS TOPICAL PATCH TD SCH (09:50)
[2018-08-05] MEDS: BACITRACIN 0.9 GM PACKET TP SCH ×2 (09:50→21:27)
[2018-08-05] MEDS: PRENATAL VITAMINS W/ FOLIC ACID TABLET (FP) PO SCH (09:51)
[2018-08-05] MEDS: OLANZapine 10 MG TABLET PO SCH (09:51)
[2018-08-05] MEDS: DIVALPROEX SODIUM 500 MG TABLET E.C. PO SCH ×2 (09:51→21:26)
[2018-08-05] MEDS: THIAMINE HCL 100 MG TABLET (FP) PO SCH (21:26)
[2018-08-05] MEDS: traZODone HCL 100 MG TABLET (FP) PO SCH (21:26)
[2018-08-06] MEDS: IBUPROFEN 400 MG TABLET (FP) PO PRN (04:04)
[2018-08-06] MEDS ORDERED: METHADONE HCL 10 MG TABLET ONE (06:03)
[2018-08-06] MEDS ORDERED: METHADONE HCL 5 MG TABLET ONE (06:03)
[2018-08-06] MEDS ORDERED: METHADONE HCL 40 MG DISPERSABLE TABLET ONE (06:03)
[2018-08-06] MEDS: METHADONE 40 MG, METHADONE 30 MG, METHADONE 5 MG PO SCH (06:58)
[2018-08-06] MEDS: BACITRACIN 0.9 GM PACKET TP SCH ×2 (09:59→21:23)
[2018-08-06] MEDS: NICOTINE 14 MG/24 HOURS TOPICAL PATCH TD SCH (09:59)
[2018-08-06] MEDS: OLANZapine 10 MG TABLET PO SCH (10:00)
[2018-08-06] MEDS: PRENATAL VITAMINS W/ FOLIC ACID TABLET (FP) PO SCH (10:00)
[2018-08-06] MEDS: DIVALPROEX SODIUM 500 MG TABLET E.C. PO SCH ×2 (10:00→21:23)
[2018-08-06] MEDS: CYCLOBENZAPRINE HCL 10 MG TABLET (FP) PO PRN (18:26)
[2018-08-06] MEDS: traZODone HCL 100 MG TABLET (FP) PO SCH (21:23)
[2018-08-06] MEDS: THIAMINE HCL 100 MG TABLET (FP) PO SCH (21:23)
[2018-08-07] MEDS: CYCLOBENZAPRINE HCL 10 MG TABLET (FP) PO PRN (04:03)
[2018-08-07] MEDS ORDERED: METHADONE HCL 5 MG TABLET ONE (05:15)
[2018-08-07] MEDS ORDERED: METHADONE HCL 40 MG DISPERSABLE TABLET ONE (05:16)
[2018-08-07] MEDS ORDERED: METHADONE HCL 10 MG TABLET ONE (05:16)
[2018-08-07] MEDS: METHADONE 40 MG, METHADONE 30 MG, METHADONE 5 MG PO SCH (06:07)
[2018-08-07] MEDS: BACITRACIN 0.9 GM PACKET TP SCH ×2 (09:36→21:22)
[2018-08-07] MEDS: DIVALPROEX SODIUM 500 MG TABLET E.C. PO SCH ×2 (09:36→21:22)
[2018-08-07] MEDS: OLANZapine 10 MG TABLET PO SCH (09:36)
[2018-08-07] MEDS: PRENATAL VITAMINS W/ FOLIC ACID TABLET (FP) PO SCH (09:36)
[2018-08-07] MEDS: NICOTINE 14 MG/24 HOURS TOPICAL PATCH TD SCH (09:39)
--- NOTE | 2018-08-07 12:35 | PN ---
[facility] Progress Note Note: C/O "SCIATICA" PAIN TO LEFT LEG RADIATING DOWN. REPORTS CURRENT MEDS NOT HELPING. PT APPEARS VERY DROWSY AND SLEEPING OVER HER LUNCH. AROUSABLE TO VERBAL COMMAND AND GETS IRRITABLE IF ASKED ABOUT BEING DROWSY AND IMMEDIATELY SPRUNG TO HER FEET. ALERT O X 3. Vital Signs - 24 hr 08/07/18 08/07/18 08/07/18 00:30 03:30 06:29 Temperature 97.9 F Pulse Rate 75 Respiratory 18 18 16 Rate Blood Pressure 112/74 A:HX SCIATICA BODY ACHES PLAN:LIDOCAINE PATCH 5% DIRECTED ON FLEXERIL PRN INCREASE PO FLUIDS
[2018-08-07] MEDS: LIDOCAINE 5% TOPICAL PATCH TP SCH (14:01)
[2018-08-07] MEDS: traZODone HCL 100 MG TABLET (FP) PO SCH (21:22)
[2018-08-07] MEDS: CYCLOBENZAPRINE HCL 5 MG TABLET PO PRN (21:22)
[2018-08-07] MEDS: THIAMINE HCL 100 MG TABLET (FP) PO SCH (21:22)
[2018-08-07] MEDS: LIDOCAINE PATCH REMOVAL MC SCH (21:22)
[2018-08-08] MEDS: IBUPROFEN 400 MG TABLET (FP) PO PRN (02:19)
[2018-08-08] MEDS ORDERED: METHADONE HCL 5 MG TABLET ONE (03:20)
[2018-08-08] MEDS ORDERED: METHADONE HCL 10 MG TABLET ONE (03:20)
[2018-08-08] MEDS ORDERED: METHADONE HCL 40 MG DISPERSABLE TABLET ONE (03:20)
[2018-08-08] MEDS: METHADONE 40 MG, METHADONE 30 MG, METHADONE 5 MG PO SCH (06:18)
[2018-08-08] MEDS: BACITRACIN 0.9 GM PACKET TP SCH ×2 (09:54→21:03)
[2018-08-08] MEDS: PRENATAL VITAMINS W/ FOLIC ACID TABLET (FP) PO SCH (09:54)
[2018-08-08] MEDS: DIVALPROEX SODIUM 500 MG TABLET E.C. PO SCH ×2 (09:54→21:03)
[2018-08-08] MEDS: OLANZapine 10 MG TABLET PO SCH (09:54)
[2018-08-08] MEDS: LIDOCAINE 5% TOPICAL PATCH TP SCH (09:54)
[2018-08-08] MEDS: NICOTINE 14 MG/24 HOURS TOPICAL PATCH TD SCH (09:55)
[2018-08-08] MEDS: THIAMINE HCL 100 MG TABLET (FP) PO SCH (21:03)
[2018-08-08] MEDS: traZODone HCL 100 MG TABLET (FP) PO SCH (21:03)
[2018-08-08] MEDS: LIDOCAINE PATCH REMOVAL MC SCH (21:03)
[2018-08-08] MEDS: CYCLOBENZAPRINE HCL 5 MG TABLET PO PRN (22:40)
[2018-08-09] MEDS: IBUPROFEN 400 MG TABLET (FP) PO PRN (01:18)
[2018-08-09] MEDS ORDERED: METHADONE HCL 5 MG TABLET ONE (03:17)
[2018-08-09] MEDS ORDERED: METHADONE HCL 10 MG TABLET ONE (03:18)
[2018-08-09] MEDS ORDERED: METHADONE HCL 40 MG DISPERSABLE TABLET ONE (03:18)
[2018-08-09] MEDS: METHADONE 40 MG, METHADONE 30 MG, METHADONE 5 MG PO SCH (06:29)
[2018-08-09] MEDS: BACITRACIN 0.9 GM PACKET TP SCH ×2 (09:42→21:06)
[2018-08-09] MEDS: LIDOCAINE 5% TOPICAL PATCH TP SCH (09:42)
[2018-08-09] MEDS: OLANZapine 10 MG TABLET PO SCH (09:43)
[2018-08-09] MEDS: DIVALPROEX SODIUM 500 MG TABLET E.C. PO SCH ×2 (09:43→21:06)
[2018-08-09] MEDS: NICOTINE 14 MG/24 HOURS TOPICAL PATCH TD SCH (09:43)
[2018-08-09] MEDS: PRENATAL VITAMINS W/ FOLIC ACID TABLET (FP) PO SCH (09:43)
[2018-08-09] MEDS: CYCLOBENZAPRINE HCL 5 MG TABLET PO PRN (21:06)
[2018-08-09] MEDS: THIAMINE HCL 100 MG TABLET (FP) PO SCH (21:06)
[2018-08-09] MEDS: traZODone HCL 100 MG TABLET (FP) PO SCH (21:06)
[2018-08-09] MEDS: LIDOCAINE PATCH REMOVAL MC SCH (21:07)
[2018-08-10] MEDS ORDERED: METHADONE HCL 40 MG DISPERSABLE TABLET ONE (03:17)
[2018-08-10] MEDS ORDERED: METHADONE HCL 5 MG TABLET ONE (03:17)
[2018-08-10] MEDS ORDERED: METHADONE HCL 10 MG TABLET ONE (03:17)
[2018-08-10] MEDS: METHADONE 40 MG, METHADONE 30 MG, METHADONE 5 MG PO SCH (06:24)
[2018-08-10] MEDS: BACITRACIN 0.9 GM PACKET TP SCH ×2 (09:43→21:42)
[2018-08-10] MEDS: PRENATAL VITAMINS W/ FOLIC ACID TABLET (FP) PO SCH (09:43)
[2018-08-10] MEDS: NICOTINE 14 MG/24 HOURS TOPICAL PATCH TD SCH (09:43)
[2018-08-10] MEDS: LIDOCAINE 5% TOPICAL PATCH TP SCH (09:43)
[2018-08-10] MEDS: DIVALPROEX SODIUM 500 MG TABLET E.C. PO SCH ×2 (09:44→21:42)
[2018-08-10] MEDS: OLANZapine 10 MG TABLET PO SCH (09:44)
[2018-08-10] MEDS: NICOTINE POLACRILEX 2 MG GUM BUC PRN (10:55)
[2018-08-10] MEDS: THIAMINE HCL 100 MG TABLET (FP) PO SCH (21:42)
[2018-08-10] MEDS: traZODone HCL 100 MG TABLET (FP) PO SCH (21:42)
[2018-08-10] MEDS: LIDOCAINE PATCH REMOVAL MC SCH (21:43)
[2018-08-10] MEDS: CYCLOBENZAPRINE HCL 5 MG TABLET PO PRN (21:44)
[2018-08-11] MEDS ORDERED: METHADONE HCL 40 MG DISPERSABLE TABLET ONE (05:56)
[2018-08-11] MEDS ORDERED: METHADONE HCL 5 MG TABLET ONE (05:56)
[2018-08-11] MEDS ORDERED: METHADONE HCL 10 MG TABLET ONE (05:56)
[2018-08-11] MEDS: METHADONE 40 MG, METHADONE 30 MG, METHADONE 5 MG PO SCH (06:32)
[2018-08-11] MEDS: NICOTINE 14 MG/24 HOURS TOPICAL PATCH TD SCH (09:49)
[2018-08-11] MEDS: PRENATAL VITAMINS W/ FOLIC ACID TABLET (FP) PO SCH (09:49)
[2018-08-11] MEDS: BACITRACIN 0.9 GM PACKET TP SCH ×2 (09:49→21:12)
[2018-08-11] MEDS: LIDOCAINE 5% TOPICAL PATCH TP SCH (09:49)
[2018-08-11] MEDS: OLANZapine 10 MG TABLET PO SCH (09:49)
[2018-08-11] MEDS: DIVALPROEX SODIUM 500 MG TABLET E.C. PO SCH ×2 (09:49→21:12)
--- NOTE | 2018-08-11 14:44 | PN ---
[facility] Progress Note Note: PATIENT SCHEDULED FOR DISCHARGE 08/14/18. PATIENT MEDICALLY STABLE AT THIS TIME AND DENIES SI/HI. PATIENT SCHEDULED TO FOLLOW UP WITH METHADONE PROGRAM ONCE DISCHARGED AND ENCOURAGED TO ATTEND GROUP MEETINGS TO PREVENT RELAPSE. PATIENT DOES NOT HAVE PCP BUT STRONGLY ADVISED TO CONTACT INSURANCE TO ASSIGN PCP FOR MEDICAL FOLLOW UP AND MANAGEMENT. PATIENT STATES SHE MET PERSONAL GOALS FROM REHAB PROGRAM. Vital Signs Temperature 98.1 F 08/11/18 07:02 Pulse Rate 74 08/11/18 07:02 Respiratory Rate 18 08/11/18 07:02 Blood Pressure 107/73 08/11/18 07:02 O2 Sat by Pulse Oximetry (%)
[2018-08-11] MEDS: THIAMINE HCL 100 MG TABLET (FP) PO SCH (21:12)
[2018-08-11] MEDS: CYCLOBENZAPRINE HCL 5 MG TABLET PO PRN (21:12)
[2018-08-11] MEDS: traZODone HCL 100 MG TABLET (FP) PO SCH (21:12)
[2018-08-11] MEDS: hydrOXYzine PAMOATE 50 MG CAPSULE (FP) PO PRN (21:14)
[2018-08-11] MEDS: LIDOCAINE PATCH REMOVAL MC SCH (21:15)
[2018-08-12] MEDS ORDERED: METHADONE HCL 10 MG TABLET ONE (06:18)
[2018-08-12] MEDS ORDERED: METHADONE HCL 5 MG TABLET ONE (06:18)
[2018-08-12] MEDS ORDERED: METHADONE HCL 40 MG DISPERSABLE TABLET ONE (06:18)
[2018-08-12] MEDS: METHADONE 40 MG, METHADONE 30 MG, METHADONE 5 MG PO SCH (06:19)
[2018-08-12] MEDS: NICOTINE 14 MG/24 HOURS TOPICAL PATCH TD SCH (09:42)
[2018-08-12] MEDS: BACITRACIN 0.9 GM PACKET TP SCH ×2 (09:42→21:08)
[2018-08-12] MEDS: PRENATAL VITAMINS W/ FOLIC ACID TABLET (FP) PO SCH (09:42)
[2018-08-12] MEDS: DIVALPROEX SODIUM 500 MG TABLET E.C. PO SCH ×2 (09:43→21:08)
[2018-08-12] MEDS: LIDOCAINE 5% TOPICAL PATCH TP SCH (09:43)
[2018-08-12] MEDS: OLANZapine 10 MG TABLET PO SCH (09:43)
[2018-08-12] MEDS: NICOTINE POLACRILEX 2 MG GUM BUC PRN (11:07)
[2018-08-12] MEDS: CYCLOBENZAPRINE HCL 5 MG TABLET PO PRN (20:30)
[2018-08-12] MEDS: hydrOXYzine PAMOATE 50 MG CAPSULE (FP) PO PRN (20:30)
[2018-08-12] MEDS: THIAMINE HCL 100 MG TABLET (FP) PO SCH (21:08)
[2018-08-12] MEDS: LIDOCAINE PATCH REMOVAL MC SCH (21:08)
[2018-08-12] MEDS: traZODone HCL 100 MG TABLET (FP) PO SCH (21:08)
[2018-08-13] MEDS ORDERED: METHADONE HCL 40 MG DISPERSABLE TABLET ONE (03:25)
[2018-08-13] MEDS ORDERED: METHADONE HCL 10 MG TABLET ONE (03:25)
[2018-08-13] MEDS ORDERED: METHADONE HCL 5 MG TABLET ONE (03:25)
[2018-08-13] MEDS: METHADONE 40 MG, METHADONE 30 MG, METHADONE 5 MG PO SCH (06:15)
[2018-08-13] MEDS: LIDOCAINE 5% TOPICAL PATCH TP SCH (09:43)
[2018-08-13] MEDS: OLANZapine 10 MG TABLET PO SCH (09:43)
[2018-08-13] MEDS: DIVALPROEX SODIUM 500 MG TABLET E.C. PO SCH ×2 (09:43→21:18)
[2018-08-13] MEDS: NICOTINE 14 MG/24 HOURS TOPICAL PATCH TD SCH (09:43)
[2018-08-13] MEDS: PRENATAL VITAMINS W/ FOLIC ACID TABLET (FP) PO SCH (09:43)
[2018-08-13] MEDS: BACITRACIN 0.9 GM PACKET TP SCH ×2 (09:43→21:18)
[2018-08-13] MEDS: LIDOCAINE PATCH REMOVAL MC SCH (21:18)
[2018-08-13] MEDS: THIAMINE HCL 100 MG TABLET (FP) PO SCH (21:18)
[2018-08-13] MEDS: CYCLOBENZAPRINE HCL 5 MG TABLET PO PRN (21:18)
[2018-08-13] MEDS: traZODone HCL 100 MG TABLET (FP) PO SCH (21:18)
[2018-08-14] MEDS: hydrOXYzine PAMOATE 50 MG CAPSULE (FP) PO PRN (02:32)
[2018-08-14] MEDS ORDERED: METHADONE HCL 40 MG DISPERSABLE TABLET ONE (03:19)
[2018-08-14] MEDS ORDERED: METHADONE HCL 5 MG TABLET ONE (03:19)
[2018-08-14] MEDS ORDERED: METHADONE HCL 10 MG TABLET ONE (03:19)
[2018-08-14] MEDS: METHADONE 40 MG, METHADONE 30 MG, METHADONE 5 MG PO SCH (06:18)
[2018-08-14 07:19] VITALS: BP 105/71; PULSE 87; TEMP 98.4
[2018-08-14] MEDS: OLANZapine 10 MG TABLET PO SCH (09:12)
[2018-08-14] MEDS: DIVALPROEX SODIUM 500 MG TABLET E.C. PO SCH (09:12)
[2018-08-14] MEDS: PRENATAL VITAMINS W/ FOLIC ACID TABLET (FP) PO SCH (09:12)
[2018-08-14] MEDS: NICOTINE 14 MG/24 HOURS TOPICAL PATCH TD SCH (09:13)
[2018-08-14] MEDS: BACITRACIN 0.9 GM PACKET TP SCH (09:13)
[2018-08-14] MEDS: LIDOCAINE 5% TOPICAL PATCH TP SCH (09:13)
== END 2018-08-14 09:00 | disposition home or self-care (01) | DRG 772 ==
LOC: YASAS 10:47 → Y3E 10:48
PROVIDERS: ADMIT Psychiatry & Neurology Psychiatry; ATTEND Psychiatry & Neurology Psychiatry
PROC: HZ42ZZZ Group Counseling for Substance Abuse Treatment, Cognitive-Behavioral (ICD-10-PCS; principal; 2018-07-29)
DX: F10.20 Alcohol dependence, uncomplicated (principal); F14.20 Cocaine dependence, uncomplicated; F11.20 Opioid dependence, uncomplicated; F17.210 Nicotine dependence, cigarettes, uncomplicated; F31.81 Bipolar II disorder; J45.909 Unspecified asthma, uncomplicated; R52 Pain, unspecified; R76.11 Nonspecific reaction to tuberculin skin test without active tuberculosis; S81.812A Laceration without foreign body, left lower leg, initial encounter; X58.XXXA Exposure to other specified factors, initial encounter; Y93.9 Activity, unspecified; Y92.238 Other place in hospital as the place of occurrence of the external cause; Y99.8 Other external cause status; R60.0 Localized edema; Z86.69 Personal history of other diseases of the nervous system and sense organs